=== PATIENT | male | born 1970 | race Caucasian/White ===

== ENCOUNTER 2021-02-11 13:29 | Emergency (ER) | payer MEDICAID, SELFPAY ==
[2021-02-11] VITALS (17 sets, daily range): BP systolic 107–119; BP diastolic 65–70; PULSE 84–108; RESP 13–23; TEMP 36.9; O2SAT 94–99
--- NOTE | 2021-02-11 13:47 | ED.GENADUL_ITS ---
Discharge Plan Disposition Patient Disposition: HOME Condition: Stable Discharge Details Clinical Impression: Allergic reaction Primary Care Provider: Tristian Jaramillo ED Provider: Tani Scruggs Home Meds and New Rx's Prescriptions: New prednisone 20 mg tablet 60 mg PO DAILY 4 Days Qty: 12 RF: 0 epinephrine [EpiPen 2-Arnoldo] 0.3 mg/0.3 mL auto-injector 0.3 mg IM ONCE Qty: 1 RF: 0 Continued aspirin [Aspir-81] 81 MG tablet,delayed release (DR/EC) 81 mg PO DAILY RF: 0 simvastatin 20 MG tablet 20 mg PO QPM RF: 0 lisinopril-hydrochlorothiazide 1 EACH tablet 2 tab PO DAILY RF: 0 glyburide 5 MG tablet 2 tab PO DAILY RF: 0 metformin [Glucophage] 1,000 MG tablet 1 tab PO BID RF: 0 azithromycin 250 MG tablet 250 mg PO DIRECTED Qty: 6 RF: 0 codeine-guaifenesin [Cheratussin AC] 5 ML liquid 10 ml PO QID PRN PRNQty: 120 RF: 0 ondansetron 4 MG tablet,disintegrating 4 mg PO Q6H PRN PRNQty: 10 RF: 0 hydrocodone-acetaminophen 1 EACH tablet 1 ea PO Q6H PRN PRNQty: 14 RF: 0 amlodipine 5 mg tablet 5 mg PO DAILY RF: 0 Discharge Instructions Instructions: General Allergic Reaction (ED) Additional Instructions: At this time you are responding nicely to the medications given. Continue taking [id number] Benadryl and Pepcid as directed. I am providing you with a prescription for prednisone for the next 4 days, take those as directed as well. Remember this medication may cause your glucose levels to be elevated, monitor them carefully. I will also providing you a prescription for an EpiPen, use this as directed with a severe allergic reaction. Please watch for new or worsening symptoms and return to the ER for any concerns. I do recommend contacting your primary care provider later today or tomorrow to discuss your ER visit and need for outpatient reevaluation. Medical Decision Making 50-year-old gentleman who was outside mowing his lawn, presents with allergic reaction, concern of a bee sting. He has a single lesion to his left leg and then a rash across his upper extremities, upper chest, upper back. He is able to speak in full sentences, denies any mouth or tongue swelling, manages his own secretions without difficulty. Denies chest pain or shortness of breath. She was given 50 IV Benadryl by EMS in route to the ER. Rash is certainly consistent with urticaria, no signs of angioedema. Plan is to obtain IV access, give IV Pepcid 20 mg, 1 L IV saline, 125 IV Solu-Medrol and reassess. Case was discussed with Dr. Sheppard who personally evaluated the patient, please see his note. Upon reevaluation patient reports feeling significantly better. He was observed in the ER for over an hour. Rash across his arms essentially resolved completely. Only a scant amount of rash remained on his upper chest and back. No evidence of respiratory compromise, angioedema, etc. Patient was able to tolerate p.o. intake without difficulty. Will provide the patient a prescription for prednisone over the next 4 days, we discussed this may increase his glucose levels. We will also provide a prescription for an EpiPen, we discussed how and when to use the EpiPen appropriately. He will continue taking qakj-[id number] Benadryl and Pepcid while taking the prednisone. Encouraged to return to the ER for new or worsening symptoms. Medical Records Medical records reviewed: Yes I reviewed the patient's medical records. HPI General Mode of arrival: EMS . Date/Time Provider Initiated Documentation: 02/11/21 13:44 . Limitations to Documentation: no limitations . Information obtained by: patient and EMS . HPI Narrative: This is a 50-year-old gentleman, past medical history that includes diabetes, hypercholesterolemia, presents to the ER via EMS for evaluation of allergic reaction. Patient states that he was outside mowing the lawn, questions if he could have been stung on the left leg by a bee, there is a rash and puncture wound there. Subsequently developed itchy rash on his upper extremities, chest, back. He states that his mouth started to feel funny, EMS called, given 50 mg IV Benadryl. Triage note reports a short period of shortness of breath prior to EMS arrival but patient denies this to me. Patient denies tongue swelling, difficulty speaking or swallowing, chest pain, shortness of breath, abdominal pain, nausea, vomiting, swelling. Patient states that he believes that he had an allergic reaction to a wasp sting as a child but no subsequent reaction. Patient states that he was asymptomatic up until noticing the rash and the itching. Denies fever, numbness, tingling. Related Data Home Medications Medication Instructions Recorded Confirmed aspirin [Aspir-81] 81 mg PO DAILY 02/21/14 02/11/21 simvastatin 20 mg PO QPM 02/21/14 02/11/21 azithromycin 250 mg PO DIRECTED #6 tab 06/22/15 11/08/15 codeine-guaifenesin [Cheratussin 10 ml PO QID PRN PRN #120 ml 06/22/15 02/11/21 AC] glyburide 2 tab PO DAILY 06/22/15 02/11/21 lisinopril-hydrochlorothiazide 2 tab PO DAILY 06/22/15 02/11/21 metformin [Glucophage] 1 tab PO BID 06/22/15 02/11/21 ondansetron 4 mg PO Q6H PRN PRN #10 tabef 06/22/15 02/11/21 hydrocodone-acetaminophen 1 ea PO Q6H PRN PRN #14 tablet 11/08/15 02/11/21 amlodipine 5 mg PO DAILY 02/11/21 02/11/21 epinephrine [EpiPen 2-Arnoldo] 0.3 mg IM ONCE #1 ea 02/11/21 prednisone 60 mg PO DAILY 4 Days #12 tab 02/11/21 Previous Rx's Medication Instructions Recorded azithromycin 250 mg PO DIRECTED #6 tab 06/22/15 codeine-guaifenesin [Cheratussin 10 ml PO QID PRN PRN #120 ml 06/22/15 AC] ondansetron 4 mg PO Q6H PRN PRN #10 tabef 06/22/15 hydrocodone-acetaminophen 1 ea PO Q6H PRN PRN #14 tablet 11/08/15 epinephrine [EpiPen 2-Arnoldo] 0.3 mg IM ONCE #1 ea 02/11/21 prednisone 60 mg PO DAILY 4 Days #12 tab 02/11/21 Allergies Allergy/AdvReac Type Severity Reaction Status Date / Time No Known Allergies Allergy Unverified 02/11/21 13:38 General Stated Complaint: Allergic CROW: 3 Review of Systems Constitutional Constitutional: Denies fever(s), Denies headache(s) and Denies weakness Eyes Eyes: Denies itchy eyes ENT Ears, Nose, Mouth, and Throat: Denies headache(s), Denies lip swelling, Denies odynophagia, Denies sore throat, Denies throat swelling and Denies tongue swelling Cardiovascular Cardiovascular: Denies chest pain and Denies dyspnea Respiratory Respiratory: Denies cough, Denies dyspnea and Denies wheezing Gastrointestinal Gastrointestinal: Denies abdominal pain, Denies nausea, Denies odynophagia and Denies vomiting Musculoskeletal Musculoskeletal: Denies back pain and Denies tingling Integumentary/Breasts Skin/Breast: Reports rash Neurologic Neurologic: Denies headache(s), Denies tingling and Denies weakness Allergic/Immunologic Allergic/Immunologic: Reports urticaria, Denies itchy eyes, Denies lip swelling, Denies throat swelling, Denies tongue swelling and Denies wheezing [facility] Social History Smoking/Tobacco Use Status: Never Smoking risk assessment performed?: Yes Drug use: Never Do you feel safe at home: Yes Do you feel safe in your relationship?: Yes Exam Const General: cooperative, healthy appearing, comfortable and no acute distress Orientation: alert, awake and oriented x3 [facility] Head: normal to inspection, normocephalic and atraumatic General nose exam: external nose normal Face and sinus: normal facial exam Mouth: oral mucosae normal and moist mucous membranes Throat: posterior oropharynx normal and uvula midline Eyes General: appearance normal, both eyes and all related structures Conjunctivae: conjunctivae normal Neck Neck: normal visual inspection, full ROM, trachea midline and supple Chest Chest: rash Resp Effort & Inspection: normal respiratory effort and able to speak in complete sentences Auscultation: clear to auscultation bilaterally Cardio Rate: regular rate Rhythm: regular rhythm GI Inspection: normal to inspection Palpation: soft and nontender Back/Spine/Pelvis Back: no CVA tenderness, erythema and No back tenderness Skin Rashes: rashes noted Other: There is a slightly papular, erythematous, hive-like rash distributed across his upper extremities, chest, upper back, patchy in nature. Highest concentration is across the chest. There is a single circular 2 cm papular erythematous lesion to the left upper leg, centrally I can see a puncture wound without obvious signs of foreign body. There is no signs of secondary infection associated with this rash. Neuro General: patient alert, patient awake, patient oriented x3, moves all extremities and no focal motor deficits Cognition: normal cognition Speech: speech normal Gait: normal gait Motor: muscle tone normal throughout and strength 5/5 throughout Sensory Exam: no sensory deficits noted Extrem General: full ROM, capillary refill normal, no pedal edema and no calf tenderness Psych Appearance: grossly normal Mental Status: mental status grossly normal Course Vital Signs Vital signs: Vital Signs Temperature 36.9 C 02/11/21 13:34 Pulse 102 H 02/11/21 13:34 Respiratory Rate 14 02/11/21 13:34 Blood Pressure 116/69 02/11/21 13:34 Pulse Oximetry 96 02/11/21 13:34 Temperature 36.9 C 02/11/21 13:34 Temperature Source Skin 02/11/21 13:34 Pulse 102 H 02/11/21 13:34 Respiratory Rate 14 02/11/21 13:34 Respiratory Effort Non-Labored 02/11/21 13:42 Respiratory Pattern Normal 02/11/21 13:42 Blood Pressure 116/69 02/11/21 13:34 Blood Pressure Position Supine 02/11/21 13:34 Pulse Oximetry 96 02/11/21 13:34 Oxygen Delivery Method Room Air 02/11/21 13:34 Oxygen Flow Rate 0 02/11/21 13:34 Pain Level 0 02/11/21 13:34
[2021-02-11] MEDS: FAMOTIDINE 20 MG/50 ML BAG 200 MG IVPB (14:08)
[2021-02-11] MEDS: methylPREDNISolone SUCC 125 MG VIAL IVP (14:08)
[2021-02-11] MEDS: Normal Saline 1,000 ML 1000 ML IV (14:09)
--- OUTSIDE RECORDS SUMMARY | 2021-02-11 14:42 | XMS_ITS ---
:1970 Author Care Team Providers Name Role Phone CLAUDIO TOBIN MD Primary Care Provider [phone] NISHI WASHINGTON General Surgeon [phone] Allergies Code Code System Name Reaction Severity Status Onset NKDA ? Medications Name Status Start Date Stop Date ? ? amlodipine 5 mg tablet Active ? Not avail able TAKE ONE TABLET BY MOUTH EVERY DAY Aspir-81 Active ? Not available 1 tablet daily BD Ultra-Fine Iman Pen Needle 32 Completed ? 03/08/2018 gauge x 5/32 BD Ultra-Fine Short Pen Needle 31 gauge x 5/16 Active ? Not available USE DIRECTED TWO TIMES A DAY glyburide 2.5 mg tablet Active ? Not avai lable TAKE ONE TABLET BY MOUTH EVERY MORNING glyburide 5 mg tablet Completed ? 03/08/2018 hydrochlorothiazide 12.5 mg capsule Completed 09/22/2010 07/31/2016 1 (one) Capsule: daily Levemir FlexTouch U-100 Insulin 100 unit/mL (3 mL) subcutaneous pen Active ? Not available INJECT 50 UNITS SUBCUTANEOUSLY DAILY lisinopril 20 mg-hydrochlorothiazide 12.5 mg tablet Active ? Not available Take 1 tablet twice a day by oral route for 90 days. lisinopril 40 mg tablet Completed 09/22/2010 07/31/20 16 1 (one) Tablet: daily metformin 1,000 mg tablet Active ? Not av ailable Take 1 tablet twice a day by oral route for 90 days. metoprolol tartrate 25 mg tablet Completed 09/22/2010 07/31/2016 1 (one) Tablet: Twice daily Multi Vitamin Active ? Not available 1 tablet daily Nasonex 50 mcg/actuation [place] Completed 07/31/2016 1 10/01/2015 2 (two) spray(s): daily OneTouch Delica Plus Lancet 33 gauge Active ? Not available TEST FOUR TIMES A DAY OneTouch Ultra Blue Test Strip Active ? N ot available TEST FOUR TIMES A DAY OneTouch Ultra2 Meter kit Active ? Not av ailable simvastatin 20 mg tablet Active ? Not jesenia ilable Take 1 tablet every day by oral route at dinner for 90 days. Victoza 3-Arnoldo 0.6 mg/0.1 mL (18 Active ? Not available mg/3 mL) subcutaneous pen injector Problems Name Status Onset Date Source ? Type 2 Diabetes Mellitus without Active 03/08/2018 ? Complication Pain in Left Foot Active 04/07/2018 ? 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 Diabetes Mellitus Unknown ? History Hyperlipidemia Active ? History Obesity Active ? History Hypertensive Disorder Active ? History Allergic Rhinitis Active ? History Acute Vascular Insufficiency of Active ? History Intestine Non-alcoholic Fatty Liver Active ? Histor y Ischemic Chest Pain Unknown ? History Diarrhea Unknown ? History Abnormal Glucose Level Active ? History Adult Health Examination Unknown ? History Atherosclerosis of Coronary Artery Active ? History without Angina Pectoris Procedures Date Name Performed by ? 06/01/2017 Colonoscopy Information not avai lable Notes: acute colitis invo lving the distal left and sigmoid colons; 05/27/2005 normal exam 07/17/2008 Cardiac Surgery Information not avai lable Notes: cardiac [place] [facility] [place] Circumcision Information not avai lable Results Lab Results Date Name Specimen Result Interpretation Description Value Range Status Address ? 09/13/2020 CBC W/ Auto BLD ? Wbc 7.0 10*3/uL 5.0-10.0 F inal [place] Diff 10*3/uL [facility] L ab (Internal) : [address] ? ? BLD ? Rbc 5.05 10*6/uL 4.60-6.00 Final N orth 10*6/uL [facility] (Internal) : [address] ? ? BLD ? Hgb 15.6 g/dL 14.0-18.0 Final Nort h g/dL [facility] (Internal) : [address] ? ? BLD ? Hct 48.4 % 41.0-51.0 Final [place] % [facility] (Internal) : [address] ? ? BLD ? Mcv 95.8 fL 80.0-96.0 Final [facility] (Internal) : [address] ? ? BLD ? Mch 30.9 pg 26.0-32.0 Final [facility] pg [facility] ([facility] : [address] ? ? BLD ? Mchc 32.2 g/dL 31.0-35.0 Final Nort h g/dL [facility] (Internal) : [address] ? ? BLD ? Rdw 12.9 % 11.5-14.5 Final [facility] (Internal) : [address] ? ? BLD ? Plt 217 10*3/uL 130-450 Final Nort h 10*3/uL [facility] (Internal) : [address] ? ? BLD ? Anc 3.78 10*3/uL ? Final Nort h [facility] (Internal) : [address] ? ? BLD ? Nlr 1.58 0.00-3.20 Final [facility] L [facility] (Internal) : [address] ? ? BLD ? Neutro 54.0 % 40.0-75.0 Final [facility] (Internal) : [address] ? ? BLD ? Lymph 34.1 % 20.0-50.0 Final [facility] (Internal) : [address] ? ? BLD ? [place] 8.4 % 2.0-10.0 Final [facility] (Internal) : [address] ? ? BLD ? Eos 2.3 % 1.0-6.0 % Final [facility] (Internal) : [address] ? ? BLD High Baso 1.1 % 0.0-1.0 % Final [facility] (Internal) : [address] ? ? BLD ? Ig 0.1 % 0.0-0.9 % Final [facility] (Internal) : [address] t 09/13/2020 Microalbumi UR ? Malb 7.3 mg/L 5.0-16.7 Araceli l North n, Urine mg/L [facility] (Internal) : [address] ? ? UR High U-crea, 136 mg/dL 30-125 Final [place] Spot mg/dL [facility] ([facility] : [address] ? ? UR ? Microalb/ 5.4 ug/mg 0.0-30.0 Final N orth crea Ratio ug/mg [facility] (Internal) : [address] 09/13/2020 Lipid S ? Chol 133 mg/dL 50-200 Final Nor th Panel, mg/dL [facility] (Internal[facility] : [address] ? ? S ? Trig 125 mg/dL 10-150 Final North mg/dL [facility] (Internal) : [address] ? ? S ? Hdl 47 mg/dL 40-60 Final [place] mg/dL [facility] (Internal) : [address] ? ? S ? Ldl 61 mg/dL 0-130 Final [place] mg/dL [facility] (Internal) : [address] 09/13/2020 CMP, Serum S High g/r 118 mg/dL 74-106 Final [place] or Plasma mg/dL [facility] (Internal) : [address] ? ? S ? Bun 14 mg/dL 9-20 Final [place] mg/dL [facility] (Internal) : [address] ? ? S ? Crea 0.90 mg/dL 0.66-1.25 Final Nor th mg/dL [facility] (Internal) : [address] t ? ? S ? Ca 9.9 mg/dL 8.4-10.2 Final [facility] mg/dL [facility] (Internal) : [address] ? ? S ? Na 141 mmol/L 137-145 Final [place] mmol/L [facility] (Internal) : [address] ? ? S ? K 4.4 mmol/L 3.5-5.1 Final [facility] mmol/L [facility] (Internal) : [address] ? ? S ? Cl 101 mmol/L 98-107 Final [place] mmol/L [facility] (Internal) : [address] ? ? S High Tco2 31.0 mmol/L 22.0-30.0 Final No rth mmol/L [facility] (Internal) : [address] ? ? S High Tp 8.3 g/dL 6.3-8.2 Final [place] g/dL [facility] (Internal) : [address] ? ? S ? Alb 4.6 g/dL 3.5-5.0 Final [place] g/dL [facility] (Internal) : [address] ? ? S ? Tbil 0.6 mg/dL 0.2-1.3 Final [place] mg/dL [facility] (Internal) : [address] ? ? S Low Alp 45 U/L 50-136 Final [place] U/L [facility] (Internal) : [address] ? ? S High Alt 99 U/L 21-72 U/L Final [place] (Sgpt) [facility] (Internal) : [address] ? ? S High Ast 64 U/L 17-59 U/L Final [place] (Sgot) [facility] (Internal) : [address] t 09/13/2020 HbA1C BLD High Ha1C 6.3 % 4.0-6.0 % Final Nor th (Hemoglobin Count ry a1C), Blood [facility] Lab (Internal) : [address] [facility] 11/10/2019 Wbc, Stool STL ? Final microbiology ? Fin al North results [facility] (Internal) : [address] [facility] 11/10/2019 C Diff STL ? C. Diff negative negative Final [place] Toxin (Nch) [facility], [facility] L [facility] Qual, PCR, (Inter nal): Stool [address] [facility] 11/10/2019 Giardia STL ? Giardia negative negative Final [place] Lamblia Ag, Count ry EIA, Stool Hospit al Lab (Internal) : [address] [facility] t 11/10/2019 Enteric STL ? Salmonell negative negative Araceli l [place] Bacteria, a PCR [facility] Lab Specific (Interna l): Culture, [address] ? ? STL ? Shigella negative negative Final Nor th PCR [facility] (Internal[facility] : [address] ? ? STL ? Campyloba negative negative Final No rth cter PCR [facility] (Internal) : [address] ? ? STL ? Shiga negative negative Final [facility] Toxin PCR [facility] (Internal) : [address] 11/10/2019 Ova + STL ? Parasite no ova and ? Final North Parasites, Growth parasites Cou ntry Light seen. Hospital L ab Microscopy, (Inte rnal): Stool [address] t 11/09/2019 CMP, Serum S High g/r 141 mg/dL 74-106 Final North or Plasma mg/dL [facility] (Internal) : [address] ? ? S ? Bun 12 mg/dL 9-20 Final [place] mg/dL [facility] (Internal) : [address] ? ? S ? Crea 0.80 mg/dL 0.66-1.25 Final Nor th mg/dL [facility] (Internal) : [address] ? ? S ? Ca 9.5 mg/dL 8.4-10.2 Final [place] mg/dL [facility] (Internal) : [address] ? ? S ? Na 139 mmol/L 137-145 Final [place] mmol/L [facility] (Internal) : [address] ? ? S ? K 3.5 mmol/L 3.5-5.1 Final [place] mmol/L [facility] (Internal) : [address] ? ? S ? Cl 99 mmol/L 98-107 Final [place] mmol/L [facility] (Internal) : [address] ? ? S ? Tco2 26.0 mmol/L 22.0-30.0 Final No rth mmol/L [facility] (Internal) : [address] ? ? S ? Tp 7.8 g/dL 6.3-8.2 Final [place] g/dL [facility] (Internal) : [address] ? ? S ? Alb 4.3 g/dL 3.5-5.0 Final [place] g/dL [facility] (Internal) : [address] ? ? S ? Tbil 0.4 mg/dL 0.2-1.3 Final North mg/dL [facility] (Internal) : [address] ? ? S ? Alp 59 U/L 50-136 Final North U/L [facility] (Internal) : [address] ? ? S ? Alt 48 U/L 21-72 U/L Final [place] (Sgpt) [facility] (Internal) : [address] ? ? S ? Ast 40 U/L 17-59 U/L Final [place] (Sgot) [facility] (Internal) : [address] t 11/09/2019 CRP, High S High Rcrp 0.72 mg/dL 0.10-0.30 Fin al [place] Sensitivity mg/dL Count ry , Serum or Hospit al Lab Plasma (Internal) : [address] t 11/09/2019 CBC W/ Auto BLD ? Wbc 9.4 10*3/uL 5.0-10.0 F inal [place] Diff 10*3/uL [facility] (Internal) : [address] ? ? BLD ? Rbc 4.62 10*6/uL 4.60-6.00 Final N orth 10*6/uL [facility] (Internal) : [address] ? ? BLD ? Hgb 14.2 g/dL 14.0-18.0 Final Nort h g/dL [facility] (Internal) : [address] ? ? BLD ? Hct 42.2 % 41.0-51.0 Final [place] % [facility] (Internal) : [address] ? ? BLD ? Mcv 91.3 fL 80.0-96.0 Final [place] fL [facility] (Internal) : [address] ? ? BLD ? Mch 30.7 pg 26.0-32.0 Final [place] pg [facility] (Internal) : [address] ? ? BLD ? Mchc 33.6 g/dL 31.0-35.0 Final Nort h g/dL [facility] (Internal) : [address] ? ? BLD ? Rdw 12.2 % 11.5-14.5 Final [facility] L ab (Internal) : [address] ? ? BLD ? Plt 216 10*3/uL 130-450 Final Nort h 10*3/uL [facility] (Internal) : [address] ? ? BLD ? Anc 4.72 10*3/uL ? Final Nort h [facility] (Internal) : [address] ? ? BLD ? Neutro 50.3 % 40.0-75.0 Final [facility] L ab (Internal) : [address] ? ? BLD ? Lymph 35.5 % 20.0-50.0 Final [facility] L ab (Internal) : [address] ? ? BLD ? [place] 9.7 % 2.0-10.0 Final [facility] L ab (Internal) : [address] ? ? BLD ? Eos 3.3 % 1.0-6.0 % Final [facility] L ab (Internal) : [address] ? ? BLD ? Baso 0.9 % 0.0-1.0 % Final [facility] ab (Internal) : [address] ? ? BLD ? Ig 0.3 % 0.0-0.9 % Final [facility] ab (Internal) : [address] 11/09/2019 ESR BLD ? Esr 15 mm/h 0-20 mm/h Final No rth (Erythrocyt Count ry e Hospital L ab Sedimentati (Inte rnal): on Rate), [address] 11/09/2019 Venipunctur ? Location Left ? ? P_nc Primary e Antecubital Care [place]: [address], [place] ? ? ? Needle 21g ? ? P_nc Prim dayna Vacutainer Care [place]: [address], [place] ? ? ? Number of 2 ? ? P_nc P rimary Attempts Care [place]: [address], [place] ? ? ? Successfu Yes ? ? P_nc P rimary l Care [place]: [address], [place] ? ? ? Dressing Pressure ? ? P_nc Primary Band-aid Care Applied [place]: [address] [facility], [place] ? ? ? Initials rs rn ? ? P_nc Pr imary Care [place]: [address] [facility], [place] 09/21/2019 CBC W/ Auto BLD ? Wbc 7.7 10*3/uL 5.0-10.0 F inal [place] Diff 10*3/uL [facility] (Internal[facility] : [address] ? ? BLD ? Rbc 4.95 10*6/uL 4.60-6.00 Final N orth 10*6/uL [facility] (Internal) : [address] ? ? BLD ? Hgb 15.3 g/dL 14.0-18.0 Final Nort h g/dL [facility] (Internal) : [address] ? ? BLD ? Hct 46.3 % 41.0-51.0 Final [facility] L [facility] (Internal) : [address] ? ? BLD ? Mcv 93.5 fL 80.0-96.0 Final [facility] L [facility] (Internal) : [address] ? ? BLD ? Mch 30.9 pg 26.0-32.0 Final [facility] L [facility] (Internal) : [address] ? ? BLD ? Mchc 33.0 g/dL 31.0-35.0 Final Nort h g/dL [facility] (Internal) : [address] ? ? BLD ? Rdw 12.5 % 11.5-14.5 Final [facility] (Internal) : [address] ? ? BLD ? Plt 213 10*3/uL 130-450 Final Nort h 10*3/uL [facility] (Internal) : [address] ? ? BLD ? Anc 3.89 10*3/uL ? Final Nort h [facility] ([facility] : [address] ? ? BLD ? Neutro 50.7 % 40.0-75.0 Final [facility] % [facility] (Internal[facility] : [address] ? ? BLD ? Lymph 36.5 % 20.0-50.0 Final [facility] % [facility] (Internal[facility] : [address] ? ? BLD ? [place] 8.2 % 2.0-10.0 Final [facility] : [address] ? ? BLD ? Eos 3.1 % 1.0-6.0 % Final [facility] (Internal) : [address] ? ? BLD High Baso 1.4 % 0.0-1.0 % Final [facility] (Internal) : [address] ? ? BLD ? Ig 0.1 % 0.0-0.9 % Final [facility] (Internal) : [address] 09/21/2019 HbA1C BLD High Ha1C 6.9 % 4.0-6.0 % Final Nor th (Hemoglobin Count ry a1C), Blood Hospi irene Lab (Internal) : [address] 09/21/2019 Lipid S ? Chol 153 mg/dL 50-200 Final Nor th Panel, mg/dL [facility] (Internal[facility] : [address] ? ? S ? Trig 83 mg/dL 10-150 Final North mg/dL [facility] (Internal) : [address] ? ? S ? Hdl 50 mg/dL 40-60 Final [facility] mg/dL [facility] (Internal) : [address] ? ? S ? Ldl 86 mg/dL 0-130 Final [place] mg/dL [facility] (Internal) : [address] t 09/21/2019 CMP, Serum S High g/r 136 mg/dL 74-106 Final North or Plasma mg/dL [facility] (Internal) : [address] t ? ? S ? Bun 15 mg/dL 9-20 Final [facility] mg/dL [facility] (Internal) : [address] ? ? S ? Crea 1.00 mg/dL 0.66-1.25 Final Nor th mg/dL [facility] (Internal) : [address] ? ? S ? Ca 10.0 mg/dL 8.4-10.2 Final Nort h mg/dL [facility] (Internal) : [address] t ? ? S ? Na 139 mmol/L 137-145 Final North mmol/L [facility] (Internal) : [address] ? ? S ? K 4.3 mmol/L 3.5-5.1 Final [facility] mmol/L [facility] (Internal) : [address] ? ? S ? Cl 100 mmol/L 98-107 Final [facility] mmol/L [facility] (Internal) : [address] ? ? S ? Tco2 28.0 mmol/L 22.0-30.0 Final No rth mmol/L [facility] (Internal) : [address] ? ? S High Tp 8.3 g/dL 6.3-8.2 Final [facility] g/dL [facility] (Internal) : [address] ? ? S ? Alb 4.6 g/dL 3.5-5.0 Final [facility] g/dL [facility] (Internal) : [address] ? ? S ? Tbil 0.5 mg/dL 0.2-1.3 Final [facility] mg/dL [facility] (Internal) : [address] ? ? S ? Alp 55 U/L 50-136 Final [facility] U/L [facility] (Internal) : [address] ? ? S ? Alt 48 U/L 21-72 U/L Final North (Sgpt) [facility] (Internal) : [address] ? ? S ? Ast 36 U/L 17-59 U/L Final [facility] (Sgot) [facility] (Internal) : [address] t 09/21/2019 Microalbumi UR ? Malb 9.9 mg/L 5.0-16.7 Araceli l [place] n, Urine mg/L [facility] (Internal) : [address] ? ? UR High U-crea, 162 mg/dL 30-125 Final [place] Spot mg/dL [facility] (Internal) : [address] ? ? UR ? Microalb/ 6.1 ug/mg 0.0-30.0 Final N orth crea Ratio ug/mg [facility] L ab (Internal) : [address] 03/21/2019 CBC W/ Auto BLD - Wbc 8.0 10*3/uL 5.0-10.0 F inal [place] Diff 10*3/uL [facility] (Internal) : [address] ? ? BLD - Rbc 4.83 10*6/uL 4.60-6.00 Final N orth 10*6/uL [facility] (Internal) : [address] ? ? BLD - Hgb 15.3 g/dL 14.0-18.0 Final Nort h g/dL [facility] L ab (Internal) : [address] ? ? BLD - Hct 44.9 % 41.0-51.0 Final [facility] L ab (Internal) : [address] ? ? BLD - Mcv 93.0 fL 80.0-96.0 Final [facility] L [facility] (Internal) : [address] ? ? BLD - Mch 31.7 pg 26.0-32.0 Final [place] pg [facility] (Internal) : [address] ? ? BLD - Mchc 34.1 g/dL 31.0-35.0 Final Nort h g/dL [facility] (Internal) : [address] ? ? BLD - Rdw 12.2 % 11.5-14.5 Final [facility] L ab (Internal) : [address] ? ? BLD - Plt 205 10*3/uL 130-450 Final Nort h 10*3/uL [facility] (Internal) : [address] ? ? BLD - Anc 4.58 10*3/uL ? Final Nort h [facility] (Internal[facility] : [address] ? ? BLD - Neutro 57.2 % 40.0-75.0 Final [facility] % [facility] (Internal) : [address] ? ? BLD - Lymph 30.3 % 20.0-50.0 Final [facility] % [facility] (Internal[facility] : [address] ? ? BLD - [place] 9.4 % 2.0-10.0 Final [facility] % [facility] (Internal) : [address] ? ? BLD - Eos 1.9 % 1.0-6.0 % Final [facility] (Internal) : [address] ? ? BLD High Baso 1.1 % 0.0-1.0 % Final [facility] (Internal) : [address] ? ? BLD - Ig 0.1 % 0.0-0.9 % Final [facility] (Internal) : [address] 03/21/2019 CMP, Serum S High g/r 115 mg/dL 74-106 Final North or Plasma mg/dL [facility] ([facility] : [address] ? ? S - Bun 14 mg/dL 9-20 Final [facility] mg/dL [facility] (Internal) : [address] ? ? S - Crea 1.00 mg/dL 0.66-1.25 Final Nor th mg/dL [facility] (Internal) : [address] ? ? S - Ca 9.5 mg/dL 8.4-10.2 Final [facility] mg/dL [facility] (Internal) : [address] ? ? S Low Na 136 mmol/L 137-145 Final North mmol/L [facility] (Internal) : [address] ? ? S - K 4.2 mmol/L 3.5-5.1 Final North mmol/L [facility] (Internal) : [address] ? ? S - Cl 99 mmol/L 98-107 Final [facility] mmol/L [facility] (Internal) : [address] ? ? S - Tco2 28.0 mmol/L 22.0-30.0 Final No rth mmol/L [facility] (Internal) : [address] ? ? S - Tp 7.8 g/dL 6.3-8.2 Final [facility] g/dL [facility] (Internal) : [address] ? ? S - Alb 4.3 g/dL 3.5-5.0 Final [facility] g/dL [facility] (Internal) : [address] ? ? S - Tbil 0.6 mg/dL 0.2-1.3 Final [facility] mg/dL [facility] (Internal) : [address] ? ? S - Alp 54 U/L 50-136 Final [facility] U/L [facility] (Internal) : [address] ? ? S High Alt 77 U/L 21-72 U/L Final [place] (Sgpt) [facility] (Internal) : [address] ? ? S - Ast 58 U/L 17-59 U/L Final [place] (Sgot) [facility] (Internal[facility] : [address] 03/21/2019 Lipid S - Chol 131 mg/dL 50-200 Final Nor th Panel, mg/dL [facility] (Internal) : [address] ? ? S - Trig 98 mg/dL 10-150 Final North mg/dL [facility] (Internal) : [address] ? ? S Low Hdl 38 mg/dL 40-60 Final [facility] mg/dL [facility] (Internal[facility] : [address] ? ? S - Ldl 73 mg/dL 0-130 Final [place] mg/dL [facility] (Internal) : [address] 03/21/2019 Microalbumi UR - Malb <7.0 mg/L 5.0-16.7 Fin al North n, Urine mg/L [facility] (Internal) : [address] ? ? UR High U-crea, 150 mg/dL 30-125 Final North Spot mg/dL [facility] (Internal) : [address] 03/21/2019 HbA1C BLD High Ha1C 6.4 % 4.0-6.0 % Final Nor th (Hemoglobin Count ry a1C), [facility] [address] 03/21/2019 TSH, Serum S - Tsh 2.96 u[IU]/mL 0.47-4.68 Final North or Plasma u[IU]/mL Count ry Hospital L ab (Internal) : [address] 09/13/2018 Lipid S - Chol 134 mg/dL 50-200 Final Nor th Panel, mg/dL [facility] (Internal) : [address] ? ? S - Trig 102 mg/dL 10-150 Final [facility] mg/dL [facility] (Internal) : [address] ? ? S - Hdl 41 mg/dL 40-60 Final [facility] mg/dL [facility] (Internal) : [address] ? ? S - Ldl 73 mg/dL 0-130 Final [place] mg/dL [facility] (Internal) : [address] 09/13/2018 CMP, Serum S High g/r 171 mg/dL 74-106 Final North or Plasma mg/dL [facility] (Internal) : [address] ? ? S - Bun 12 mg/dL 9-20 Final [facility] mg/dL [facility] (Internal) : [address] ? ? S - Crea 0.90 mg/dL 0.66-1.25 Final Nor th mg/dL [facility] (Internal) : [address] ? ? S - Ca 9.3 mg/dL 8.4-10.2 Final [facility] mg/dL [facility] (Internal) : [address] ? ? S - Na 139 mmol/L 137-145 Final North mmol/L [facility] (Internal) : [address] ? ? S - K 4.1 mmol/L 3.5-5.1 Final North mmol/L [facility] L [facility] (Internal) : [address] ? ? S - Cl 100 mmol/L 98-107 Final North mmol/L [facility] L [facility] (Internal) : [address] ? ? S - Tco2 27.0 mmol/L 22.0-30.0 Final No rth mmol/L [facility] (Internal) : [address] ? ? S - Tp 7.6 g/dL 6.3-8.2 Final North g/dL [facility] (Internal) : [address] ? ? S - Alb 4.1 g/dL 3.5-5.0 Final [facility] g/dL [facility] (Internal[facility] : [address] ? ? S - Tbil 0.7 mg/dL 0.2-1.3 Final [facility] mg/dL [facility] (Internal) : [address] ? ? S - Alp 58 U/L 50-136 Final North U/L [facility] (Internal) : [address] ? ? S High Alt 79 U/L 21-72 U/L Final [place] (Sgpt) [facility] L ab (Internal) : [address] t ? ? S High Ast 60 U/L 17-59 U/L Final [place] (Sgot) [facility] L [facility] (Internal) : [address] 09/13/2018 Microalbumi UR - Malb 14.1 mg/L 5.0-16.7 Fin al [place] n, Urine mg/L [facility] ([facility] : [address] t ? ? UR High U-crea, 175 mg/dL 30-125 Final [place] Spot mg/dL [facility] L ab (Internal) : [address] ? ? UR - Microalb/ 8.1 ug/mg 0.0-30.0 Final N orth crea Ratio ug/mg [facility] Hospital L ab (Internal) : [address] 09/13/2018 HbA1C BLD High Ha1C 7.7 % 4.0-6.0 % Final Nor th (Hemoglobin Count ry a1C), Blood Hospi irene Lab (Internal) : [address] 04/11/2018 Venipunctur Blood ? No ? ? ? P _nc Primary e venous observatio Care n [place] recorded. ns: [address] 04/07/2018 CBC W/ Auto BLD - Wbc 9.9 10*3/uL 5.0-10.0 F inal [place] Diff 10*3/uL [facility] (Internal) : [address] t ? ? BLD - Rbc 4.90 10*6/uL 4.60-6.00 Final N orth 10*6/uL [facility] (Internal) : [address] ? ? BLD - Hgb 15.2 g/dL 14.0-18.0 Final Nort h g/dL [facility] L [facility] (Internal) : [address] ? ? BLD - Hct 45.0 % 41.0-51.0 Final [facility] L ab (Internal) : [address] ? ? BLD - Mcv 91.8 fL 80.0-96.0 Final [facility] L ab (Internal) : [address] ? ? BLD - Mch 31.0 pg 26.0-32.0 Final [facility] L ab (Internal) : [address] t ? ? BLD - Mchc 33.8 g/dL 31.0-35.0 Final Nort h g/dL [facility] (Internal) : [address] ? ? BLD - Rdw 12.3 % 11.5-14.5 Final [facility] L ab (Internal) : [address] ? ? BLD - Plt 229 10*3/uL 130-450 Final Nort h 10*3/uL [facility] (Internal) : [address] ? ? BLD - Anc 5.75 10*3/uL ? Final Nort h [facility] L [facility] (Internal) : [address] t ? ? BLD - Neutro 57.9 % 40.0-75.0 Final [facility] L ab (Internal) : [address] ? ? BLD - Lymph 30.0 % 20.0-50.0 Final [facility] L ab (Internal) : [address] ? ? BLD - [place] 8.3 % 2.0-10.0 Final [facility] L ab (Internal) : [address] Akhil[place]elyn mely ? ? BLD - Eos 2.5 % 1.0-6.0 % Final [facility] L ab (Internal) : [address] Akhil[place]elyn mely ? ? BLD High Baso 1.1 % 0.0-1.0 % Final [facility] L ab (Internal) : [address] ? ? BLD - Ig 0.2 % 0.0-0.9 % Final [facility] L ab (Internal) : [address], Yoan 04/07/2018 Uric Acid, S - Urca 7.0 mg/dL 3.5-8.5 Final [facility] or mg/dL [facility] L ab (Internal) : [address] Yoan 04/07/2018 ESR BLD - Esr 12 mm/h 0-20 mm/h Final No rth (Erythrocyt Count ry Hospital L ab Sedimentati (Inte rnal): on Rate), [address] [facility] t 03/01/2018 CBC W/ Auto BLD - Wbc 8.4 10*3/uL 5.0-10.0 F inal [place] Diff 10*3/uL [facility] L ab (Internal) : [address], Akhiljoselyn emly ? ? BLD - Rbc 4.88 10*6/uL 4.60-6.00 Final N orth 10*6/uL [facility] L ab (Internal) : [address] mely ? ? BLD - Hgb 15.0 g/dL 14.0-18.0 Final Nort h g/dL [facility] L ab (Internal) : [address] mely ? ? BLD - Hct 45.0 % 41.0-51.0 Final [facility] L ab (Internal) : [address] mely ? ? BLD - Mcv 92.2 fL 80.0-96.0 Final [facility] L ab (Internal) : [address] ? ? BLD - Mch 30.7 pg 26.0-32.0 Final [facility] L ab (Internal) : [address] ? ? BLD - Mchc 33.3 g/dL 31.0-35.0 [facility] (Internal) : [address] ? ? BLD - Rdw 12.2 % 11.5-14.5 Final [facility] L ab (Internal) : [address] Yoan t ? ? BLD - Plt 188 10*3/uL 130-450 Final Nort h 10*3/uL [facility] L ab (Internal) : [address] ? ? BLD - Anc 4.61 10*3/uL ? Final Nort h [facility] L ab (Internal) : [address], [place]an t ? ? BLD - Neutro 55.0 % 40.0-75.0 Final [facility] L ab (Internal) : [address], [place] ? ? BLD - Lymph 32.4 % 20.0-50.0 Final [facility] L ab (Internal) : [address] Yoan t ? ? BLD - [place] 8.6 % 2.0-10.0 Final [facility] L ab (Internal) : [address] ? ? BLD - Eos 2.5 % 1.0-6.0 % Final [facility] L ab (Internal) : [address], [place] t ? ? BLD High Baso 1.3 % 0.0-1.0 % Final [facility] L ab (Internal) : [address] t ? ? BLD - Ig 0.2 % 0.0-0.9 % Final [facility] L ab (Internal) : [address] 03/01/2018 Lipid S - Chol 138 mg/dL 50-200 Final [facility] th Panel, mg/dL [facility] Hospital L ab (Internal) : [address] ? ? S - Trig 131 mg/dL 10-150 Final [place] mg/dL [facility] ([facility] : [address] t ? ? S - Hdl 43 mg/dL 40-60 Final [place] mg/dL [facility] (Internal) : [address] t ? ? S - Ldl 69 mg/dL 0-130 Final [place] mg/dL [facility] (Internal) : [address] 03/01/2018 CMP, Serum S High g/r 129 mg/dL 74-106 Final [place] or Plasma mg/dL [facility] (Internal) : [address] t ? ? S - Bun 12 mg/dL 9-20 Final [place] mg/dL [facility] (Internal) : [address] t ? ? S - Crea 0.80 mg/dL 0.66-1.25 Final [place] th mg/dL [facility] (Internal) : [address] t ? ? S - Ca 9.2 mg/dL 8.4-10.2 Final [place] mg/dL [facility] (Internal) : [address] ? ? S Low Na 136 mmol/L 137-145 Final [place] mmol/L [facility] (Internal) : [address] t ? ? S - K 3.9 mmol/L 3.5-5.1 Final [place] mmol/L [facility] (Internal) : [address] t ? ? S - Cl 100 mmol/L 98-107 Final [place] mmol/L [facility] (Internal) : [address] t ? ? S - Tco2 26.0 mmol/L 22.0-30.0 Final No rth mmol/L [facility] (Internal) : [address] t ? ? S - Tp 7.6 g/dL 6.3-8.2 Final [place] g/dL [facility] (Internal) : [address] t ? ? S - Alb 4.2 g/dL 3.5-5.0 Final [place] g/dL [facility] (Internal) : [address] t ? ? S - Tbil 0.7 mg/dL 0.2-1.3 Final [place] mg/dL [facility] (Internal) : [address] [facility] ? ? S Low Alp 48 U/L 50-136 Final [place] U/L [facility] L ab (Internal) : [address] [facility] ? ? S High Alt 89 U/L 21-72 U/L Final [place] (Sgpt) [facility] L ab (Internal) : [address] t ? ? S High Ast 78 U/L 17-59 U/L Final [place] (Sgot) [facility] (Internal) : [address] [facility] 03/01/2018 TSH, Serum S - Tsh 3.63 u[IU]/mL 0.47-4.68 Final [place] or Plasma u[IU]/mL [facility] L ab (Internal) : [address] [facility] 03/01/2018 HbA1C BLD High Ha1C 7.8 % 4.0-6.0 % Final [place] (Hemoglobin Count ry a1C), Blood Hospi i[facility] Lab (Internal) : [address] [facility] 07/26/2017 HbA1C BLD High Ha1C 6.5 % 4.0-6.0 % Final [place] th (Hemoglobin Count ry a1C), Blood Hospi irene Lab (Internal) : [address] [facility] 06/01/2017 Pathology TISS ? Report results below ? Fi nal [facility] L ab (Internal) : [address] [facility] 05/31/2017 Venipunctur BLD ? Venpn* ? ? Final [place] e [facility] L ab (Internal) : [address] [facility] 05/31/2017 Partial BLD Low APTT (Op) 21 s 22-35 s Final [place] Thromboplas Count [facility] Lab (Internal) : [address] [facility] 05/31/2017 Prothrombin BLD ? Pt 9.9 S 9.1-11.7 Final [place] Time [facility] L ab (Internal) : [address] t ? ? BLD ? Inr 1.0 ? Final [facility] Hospital L ab (Internal) : [address] 05/31/2017 CMP, Serum S ? g/r 105 mg/dL 74-106 Final [place] or Plasma mg/dL [facility] (Internal) : [address] t ? ? S ? Bun 12 mg/dL 9-20 Final [place] mg/dL [facility] (Internal) : [address] t ? ? S ? Crea 0.90 mg/dL 0.66-1.25 Final [place] mg/dL [facility] (Internal) : [address] t ? ? S ? Ca 9.6 mg/dL 8.4-10.2 Final [place] mg/dL [facility] (Internal) : [address] t ? ? S ? Na 141 mmol/L 137-145 Final [place] mmol/L [facility] (Internal) : [address] t ? ? S ? K 4.1 mmol/L 3.5-5.1 Final [place] mmol/L [facility] (Internal) : [address] t ? ? S ? Cl 100 mmol/L 98-107 Final [place] mmol/L [facility] (Internal) : [address] t ? ? S ? Tco2 26.0 mmol/L 22.0-30.0 Final No rth mmol/L [facility] (Internal) : [address] t ? ? S ? Tp 7.8 g/dL 6.3-8.2 Final [place] g/dL [facility] (Internal) : [address] t ? ? S ? Alb 4.4 g/dL 3.5-5.0 Final [place] g/dL [facility] (Internal) : [address] t ? ? S ? Tbil 0.7 mg/dL 0.2-1.3 Final [place] mg/dL [facility] (Internal) : [address] t ? ? S Low Alp 46 U/L 50-136 Final [place] U/L [facility] (Internal) : [address] t ? ? S High Alt 85 U/L 21-72 U/L Final [place] (Sgpt) [facility] L ab (Internal) : [address] t ? ? S ? Ast 32 U/L 17-59 U/L Final [place] (Sgot) [facility] (Internal) : [address] t 05/31/2017 CBC W/ Auto BLD High Wbc 12.5 10*3/uL 5.0-10.0 Final North Diff 10*3/uL [facility] L ab (Internal) : [address] t ? ? BLD ? Rbc 4.70 10*6/uL 4.60-6.00 Final N orth 10*6/uL [facility] L ab (Internal) : [address] t ? ? BLD ? Hgb 15.0 g/dL 14.0-18.0 Final Nort h g/dL [facility] L ab (Internal) : [address] t ? ? BLD ? Hct 43.9 % 41.0-51.0 Final [facility] L ab (Internal) : [address] t ? ? BLD ? Mcv 93.4 fL 80.0-96.0 Final [facility] L ab (Internal) : [address] t ? ? BLD ? Mch 31.9 pg 26.0-32.0 Final [facility] L ab (Internal) : [address] t ? ? BLD ? Mchc 34.2 g/dL 31.0-35.0 Final Nort h g/dL [facility] L ab (Internal) : [address] t ? ? BLD ? Rdw 12.1 % 11.5-14.5 Final [facility] L ab (Internal) : [address] t ? ? BLD ? Plt 203 10*3/uL 130-450 Final Nort h 10*3/uL [facility] L ab (Internal) : [address] t ? ? BLD ? Anc 8.93 10*3/uL ? Final Nort h [facility] L ab (Internal) : [address] t ? ? BLD ? Neutro 71.6 % 40.0-75.0 Final [facility] L ab (Internal) : [address] t ? ? BLD Low Lymph 18.9 % 20.0-50.0 Final [facility] L ab (Internal) : [address] ? ? BLD ? [place] 7.5 % 2.0-10.0 Final [facility] L ab (Internal) : [address] ? ? BLD ? Eos 1.0 % 1.0-6.0 % Final [facility] L ab (Internal) : [address] ? ? BLD ? Baso 0.6 % 0.0-1.0 % Final [facility] L ab (Internal) : [address] ? ? BLD ? Ig 0.4 % 0.0-0.9 % Final [facility] L ab (Internal) : [address] 05/31/2017 Type + BLD ? Abo Ab ? Final [facility] L ab (Internal) : [address] ? ? BLD ? Rh positive ? Final [facility] L ab (Internal) : [address] ? ? BLD ? Ab Scrn negative negative Final Nort h [facility] L ab (Internal) : [address] 02/19/2017 TSH, Serum S ? Tsh 3.38 u[IU]/mL 0.47-4.68 Final North or Plasma u[IU]/mL Count [facility] L ab (Internal) : [address] 02/19/2017 CMP, Serum S High g/r 116 mg/dL 74-106 Final North or Plasma mg/dL [facility] L ab (Internal) : [address] ? ? S ? Bun 14 mg/dL 9-20 Final [place] mg/dL [facility] L ab (Internal) : [address] [place] t ? ? S ? Crea 0.90 mg/dL 0.66-1.25 Final [facility] th mg/dL [facility] L ab (Internal) : [address] ? ? S ? Ca 9.3 mg/dL 8.4-10.2 Final [place] mg/dL [facility] L ab (Internal) : [address] ? ? S ? Na 138 mmol/L 137-145 Final North mmol/L [facility] L ab (Internal) : [address] ? ? S ? K 4.3 mmol/L 3.5-5.1 Final [place] mmol/L [facility] (Internal) : [address] t ? ? S ? Cl 103 mmol/L 98-107 Final [place] mmol/L [facility] (Internal) : [address] t ? ? S ? Tco2 28.0 mmol/L 22.0-30.0 Final No rth mmol/L [facility] L [facility] (Internal) : [address] t ? ? S ? Tp 8.0 g/dL 6.3-8.2 Final [place] g/dL [facility] (Internal) : [address] t ? ? S ? Alb 4.3 g/dL 3.5-5.0 Final [place] g/dL [facility] (Internal) : [address] t ? ? S ? Tbil 0.8 mg/dL 0.2-1.3 Final [place] mg/dL [facility] L [facility] (Internal) : [address] t ? ? S ? Alp 52 U/L 50-136 Final [place] U/L [facility] L ab (Internal) : [address] t ? ? S High Alt 130 U/L 21-72 U/L Final [place] (Sgpt) [facility] L ab (Internal) : [address] t ? ? S High Ast 91 U/L 17-59 U/L Final [place] (Sgot) [facility] L ab (Internal) : [address] 02/19/2017 CBC W/ Auto BLD ? Wbc 7.8 10*3/uL 5.0-10.0 F inal [place] Diff 10*3/uL [facility] L [facility] (Internal) : [address] t ? ? BLD ? Rbc 4.87 10*6/uL 4.60-6.00 Final N orth 10*6/uL [facility] (Internal) : [address] t ? ? BLD ? Hgb 15.5 g/dL 14.0-18.0 Final Nort h g/dL [facility] L [facility] (Internal) : [address] t ? ? BLD ? Hct 45.7 % 41.0-51.0 Final [facility] L ab (Internal) : [address] ? ? BLD ? Mcv 93.8 fL 80.0-96.0 Final [facility] L ab (Internal) : [address] ? ? BLD ? Mch 31.8 pg 26.0-32.0 Final [facility] L ab (Internal) : [address] ? ? BLD ? Mchc 33.9 g/dL 31.0-35.0 [facility] L ab (Internal) : [address] ? ? BLD ? Rdw 12.1 % 11.5-14.5 Final [facility] L ab (Internal) : [address] t ? ? BLD ? Plt 173 10*3/uL 130-450 Final Nort h 10*3/uL [facility] L ab (Internal) : [address] t ? ? BLD ? Anc 4.00 10*3/uL ? Final Nort [facility] L ab (Internal) : [address] ? ? BLD ? Neutro 51.3 % 40.0-75.0 Final [facility] L ab (Internal) : [address] ? ? BLD ? Lymph 34.0 % 20.0-50.0 Final [facility] L ab (Internal) : [address] t ? ? BLD High [place] 10.5 % 2.0-10.0 Final [facility] L ab (Internal) : [address] t ? ? BLD ? Eos 2.9 % 1.0-6.0 % Final [facility] Hospital L ab (Internal) : [address] ? ? BLD ? Baso 1.0 % 0.0-1.0 % Final [facility] L ab (Internal) : [address] t ? ? BLD ? Ig 0.3 % 0.0-0.9 % Final [facility] L ab (Internal) : [address] t 02/19/2017 HbA1C BLD High Ha1C 7.0 % 4.0-6.0 % Final [place] (Hemoglobin Count ry a1C), Blood Hospi irene Lab (Internal) : [address] 12/18/2016 Microalbumi UR ? Malb <6.0 mg/L 5.0-16.7 Fin al [place] n, Urine mg/L [facility] (Internal) : [address] t ? ? UR ? U-crea, 83 mg/dL 30-125 Final [place] Spot mg/dL [facility] (Internal) : [address] 12/18/2016 HbA1C BLD High Ha1C 7.0 % 4.0-6.0 % Final [place] (Hemoglobin Count ry a1C), Blood Hospi irene Lab (Internal) : [address] 12/18/2016 CMP, Serum S High g/r 115 mg/dL 74-106 Final [place] or Plasma mg/dL [facility] L [facility] (Internal) : [address] t ? ? S ? Bun 12 mg/dL 9-20 Final [place] mg/dL [facility] (Internal) : [address] t ? ? S ? Crea 0.80 mg/dL 0.66-1.25 Final [place] [facility] mg/dL [facility] (Internal) : [address] t ? ? S ? Ca 9.6 mg/dL 8.4-10.2 Final [place] mg/dL [facility] (Internal) : [address] t ? ? S ? Na 139 mmol/L 137-145 Final [place] mmol/L [facility] (Internal) : [address] t ? ? S ? K 3.6 mmol/L 3.5-5.1 Final [place] mmol/L [facility] (Internal) : [address] t ? ? S ? Cl 100 mmol/L 98-107 Final [place] mmol/L [facility] (Internal) : [address] t ? ? S ? Tco2 25.0 mmol/L 22.0-30.0 Final No rth mmol/L [facility] L [facility] (Internal) : [address] t ? ? S ? Tp 7.6 g/dL 6.3-8.2 Final [place] g/dL [facility] L ab (Internal) : [address] , [place] ? ? S ? Alb 4.2 g/dL 3.5-5.0 Final [place] g/dL [facility] L ab (Internal) : [address] , [place] ? ? S ? Tbil 0.6 mg/dL 0.2-1.3 Final [place] mg/dL [facility] L ab (Internal) : [address] [place] ? ? S ? Alp 55 U/L 50-136 Final [place] U/L [facility] L ab (Internal) : [address] , [place] ? ? S High Alt 94 U/L 21-72 U/L Final [place] (Sgpt) [facility] L ab (Internal) : [address] , [place] ? ? S High Ast 72 U/L 17-59 U/L Final [place] (Sgot) [facility] L ab (Internal) : [address] , [place] ? Venipunctur ? Location Right ? ? P_ nc Primary e Antecubital Care [place] ns: [address], [place] ? ? ? Needle 21g ? ? P_nc Prim dayna Vacutainer Care [place] ns: [address], [place] ? ? ? Number of 1 ? ? P_nc P rimary Attempts Care [place] ns: [address], [place] ? ? ? Successfu Yes ? ? P_nc P rimary l Care [place] ns: [address], [place] ? ? ? Dressing Pressure ? ? P_nc Primary Band-aid Care Applied [place] ail[place] ns: [address], [place] ? ? ? Initials hj ? ? P_nc Pr imary Care [place] ns: [address], [place] ? Venipunctur ? Location Left ? ? P_ nc Primary e Antecubital Care [place] ns: [address], [place] ? ? ? Needle 21g ? ? P_nc Prim dayna Vacutainer Care [place] ns: [address], [place] ? ? ? Number of 1 ? ? P_nc P rimary Attempts Care [place] ns: [address], [place] ? ? ? Successfu Yes ? ? P_nc P rimary l Care [place] ns: [address], [place] ? ? ? Dressing Pressure ? ? P_nc Primary Band-aid Care Applied [place] ns: [address], [place] ? ? ? Initials hj ? ? P_nc Pr imary Care [place] ns: [address], [place] ? Venipunctur ? Location Right ? ? P_ nc Primary e Antecubital Care [place] ns: [address], [place] ? ? ? Needle 21g ? ? P_nc Prim dayna Vacutainer Care [place] ns: [address], [place] ? ? ? Number of 1 ? ? P_nc P rimary Attempts Care [place] ns: [address], [place] ? ? ? Successfu Yes ? ? P_nc P rimary l Care [place] ns: [address], [place] ? ? ? Dressing Pressure ? ? P_nc Primary Band-aid Care Applied [place] ns: [address], [place] ? ? ? Initials LMK ? ? P_nc Pr imary Care [place] ns: [address], [place] ? Venipunctur ? Location Right ? ? P_ nc Primary e Antecubital Care [place] ns: [address], [place] ? ? ? Needle 21g ? ? P_nc Prim dayna Vacutainer Care [place] ns: [address], [place] ? ? ? Number of 1 ? ? P_nc P rimary Attempts Care [place] ns: [address], [place] ? ? ? Successfu Yes ? ? P_nc P rimary l Care [place] ns: [address], [place] ? ? ? Dressing Pressure ? ? P_nc Primary Band-aid Care Applied [place] ns: [address], [place] ? ? ? Initials LMK ? ? P_nc Pr imary Care [place] ns: [address], [place] ? Venipunctur ? Location Right ? ? P_ nc Primary e Antecubital Care [place] ns: [address], [place] ? ? ? Needle 21g ? ? P_nc Prim dayna Vacutainer Care [place] ns: [address], [place] ? ? ? Number of 1 ? ? P_nc P rimary Attempts Care [place] ns: [address], [place] ? ? ? Successfu Yes ? ? P_nc P rimary l Care [place] ns: [address], [place] ? ? ? Dressing Pressure ? ? P_nc Primary Band-aid Care Applied [place] ns: [address], [place] ? ? ? Initials LMK ? ? P_nc Pr imary Care [place] ns: [address], [place] Past Encounters 09/20/2020 Hyperlipidemia; Hypertensive Disorder; T ype 2 Diabetes Mellitus without Complication Claudio Tobin MD: [address] [place] [phone], Ph. 09/13/2020 Hypertensive Disorder Claudio Tobin MD: [address] [place] [phone], Ph. 06/13/2020 Administration of Influenza Vaccine Claudio Tobin MD: [address] [place] [phone], Ph. 11/09/2019 Abdominal Pain; Hematochezia; Diarrhea Claudio Tobin MD: [address] [place] [phone], Ph. 09/29/2019 Hypertensive Disorder; Type 2 Diabetes M ellitus without Complication; Hyperlipidemia Claudio Tobin MD: [address] [place] [phone], Ph. 09/21/2019 Type 2 Diabetes Mellitus without Complic ation Claudio Tobin MD: [address] [place] [address], [place] [phone], Ph. 08/21/2019 Administration of Influenza Vaccine Claudio Tobin MD: [address] [place] [phone], Ph. Social History Tobacco Smoking Status Never Smoker Vaccine List Vaccine Type COVID-19, mRNA, LNP-S, PF, 100 mcg/0.5 m L dose 11/19/2020 influenza, injectable, quadrivalent, pre servative free 08/17/2018 08/21/2019 06/13/2020?0.5 mL influenza, seasonal, injectable, preserv ative free 07/31/2016?0.5 mL 08/16/2017?0.5 mL Td (adult), adsorbed 08/30/2001 Tdap 10/08/2016?0.5 mL Plan of Care Reminders Provider Appointments None ? ? recorded. Lab None ? ? recorded. Referral None ? ? recorded. Procedures None ? ? recorded. Surgeries None ? ? recorded. Imaging None ? ? recorded. Vitals 09/20/2020 02:40PM Follow Up 20 Height Weight BMI Blood Pressure 181.61 cm 106.25 kg 32.2 kg/m2 136/80 mm[Hg] 06/13/2020 04:00PM Nurse 20 Height 181.61 cm 11/09/2019 01:40PM Acute 20 Height Weight BMI Blood Pressure 181.61 cm 111.13 kg 33.7 kg/m2 122/70 mm[Hg] 09/29/2019 10:40AM Follow Up 40 Height Weight BMI Blood Pressure 181.61 cm 110.22 kg 33.4 kg/m2 120/78 mm[Hg] 03/28/2019 08:20AM Follow Up 40 Height Weight BMI Blood Pressure 181.61 cm 110.7 kg 33.6 kg/m2 118/78 mm[Hg] 09/29/2018 04:00PM Follow Up 40 Height Weight BMI Blood Pressure 181.61 cm 115.35 kg 35 kg/m2 112/68 mm[Hg] 04/07/2018 02:30PM Acute 30 Height Blood Pressure 181.61 cm 110/72 mm[Hg] 03/08/2018 02:30PM Follow Up 30 Height Weight BMI Blood Pressure 181.61 cm 116.3 kg 35.3 kg/m2 138/94 mm[Hg] 09/13/2017 Weight Blood Pressure 116.75 kg 132/88 mm[Hg] 06/11/2017 Height Weight Blood Pressure 181.61 cm 108.41 kg 120/80 mm[Hg] 03/25/2017 Height Weight Blood Pressure 181.61 cm 113.17 kg 144/84 mm[Hg] 12/18/2016 Weight Blood Pressure 112.49 kg 140/78 mm[Hg] 10/19/2016 Height Weight 181.61 cm 110.68 kg 10/08/2016 Height Weight Blood Pressure 181.61 cm 108.41 kg 136/86 mm[Hg] 07/31/2016 Weight Blood Pressure 105.69 kg 164/100 mm[Hg]
== END 2021-02-11 15:00 | disposition home or self-care (01) ==
PROVIDERS: Emergency Provider Physician Assistant; PCP Family Medicine
DX: S80.862A Insect bite (nonvenomous), left lower leg, initial encounter (principal); W57.XXXA Bitten or stung by nonvenomous insect and other nonvenomous arthropods, initial encounter
CPT/HCPCS: 96361; 96365; 96375; 99284; 99283; J2930